=== PATIENT | female | born 1980 | race Caucasian/White ===

== ENCOUNTER 2019-02-15 01:38 | Emergency (ER) | payer OTHER ==
[2019-02-15 02:12] LABS: HCG UR QUAL NEGATIVE
--- NOTE | 2019-02-15 02:33 | XRAY Report ---
Reason: Trauma, fall Procedure Date: 02/15/2019 Accession Number: [id number] / [id number] Procedure: XR - Knee 4 View LT CPT Code: FULL RESULT: EXAM: LEFT KNEE RADIOGRAPHY EXAM DATE: 02/15/2019 02:24 AM. CLINICAL HISTORY: Pain after injury. COMPARISON: None. TECHNIQUE: 5 views. FINDINGS: Bones: No fracture seen. Joints: No dislocation. Joint spaces appear preserved. No joint effusion identified. Soft Tissues: Mild soft tissue swelling. IMPRESSION: 1. No fracture or dislocation seen. RADIA
[2019-02-15] MEDS ORDERED: HYDROcod/ACET 5/325 Prepack 4 PO STA (04:03)
[2019-02-15 04:24] VITALS: BP 151/70
--- NOTE | 2019-02-18 02:48 | ED Physician Documentation ---
PD HPI LOWER EXT INJURY - Stated complaint Stated Complaint: KNEE PX - Chief complaint Chief Complaint: Trauma Ext - History obtained from History obtained from: Patient - History of Present Illness PD HPI LOW EXT INJURY LOCATION: Left, Knee Type of injury: Fall Where injury occurred: Home Timing - onset: Enter time (23:30) Timing - details: Abrupt onset Pain level now: 6 Improved by: Rest, Ice Worsened by: Moving, Palpating Associated symptoms: Swelling Similar symptoms before: Has not had sx before Recently seen: Not recently seen - Additional information Additional information: tripped while trying to gather chickens that got loose in her yard 11:30 PM tonight, landed on left knee and c/o left knee pain Review of Systems Skin: reports: Reviewed and negative Musculoskeletal: reports: Joint pain, Pain with weight bearing Neurologic: denies: Focal weakness, Numbness PD PAST MEDICAL HISTORY - Past Medical History Past Medical History: No - Past Surgical History Past Surgical History: No - Present Medications Home Medications: Ambulatory Orders Medication Instructions Recorded Confirmed Hydrocodone/Acetaminophen 1 - 2 each PO Q6H PRN #14 tablet 02/15/19 [Hydrocodon-Acetaminophen 5-325] - Allergies Allergies/Adverse Reactions: Allergies Allergy/AdvReac Type Severity Reaction Status Date / Time oxycodone AdvReac Nausea Verified 02/15/19 01:45 - Social History Does the pt smoke?: No Smoking Status: Never smoker Does the pt drink ETOH?: Yes Does the pt have substance abuse?: No - Immunizations Immunizations are current?: Yes - POLST Patient has POLST: No PD ED PE NORMAL - Vitals Vital signs reviewed: Yes - General General: Alert and oriented X 3, No acute distress, Well developed/nourished - Derm Derm: Normal color, Warm and dry - Extremities Extremities: No edema - Neuro Neuro: No motor deficit, No sensory deficit PD ED PE EXPANDED - Extremities Extremities: Tenderness, Limited ROM, Left knee. No: Deformity Results - Vitals Vitals: Oxygen O2 Source Room air - Labs Labs: Laboratory Tests 02/15/19 01:58 Ur Specific B[place]ton <=1.005 Urine HCG, Qual NEGATIVE - Rads (name of study) left knee xrays Radiology: Prelim report reviewed, See rad report PD MEDICAL DECISION MAKING - ED course Complexity details: reviewed results, re-evaluated patient, considered differential, d/w patient Departure - Departure Disposition: 01 Home, Self Care Clinical Impression: Knee injury Qualifiers: Encounter type: initial encounter Laterality: left Qualified Code(s): S89.92XA - Unspecified injury of left lower leg, initial encounter Condition: Good Instructions: ED Crutch Walking, ED Immobilizer Knee, ED Sprain Knee Follow-Up: Nicolás Quintero MD [Provider Admit Priv/Credential] - (3-5 days ) Prescriptions: Hydrocodone/Acetaminophen [Hydrocodon-Acetaminophen 5-325] 1 - 2 each PO Q6H PRN #14 tablet PRN Reason: pain Forms: Activity restrictions Discharge Date/Time: 02/15/19 04:59
== END 2019-02-15 04:59 | disposition home or self-care (01) ==
LOC: ED 01:38
DX: S89.92XA Unspecified injury of left lower leg, initial encounter (principal); W01.198A Fall on same level from slipping, tripping and stumbling with subsequent striking against other object, initial encounter; Y93.89 Activity, other specified; Y92.007 Garden or yard of unspecified non-institutional (private) residence as the place of occurrence of the external cause
CPT/HCPCS: 81025; 99282; 99283

== ENCOUNTER 2022-01-05 07:33 | Outpatient (CLI) | payer OTHER ==
--- NOTE | 2022-01-05 08:56 | MRI Report ---
PROCEDURE: Knee LT W/O INDICATIONS: KNEE PAIN TECHNIQUE: Noncontrast sagittal PD fast spin echo and T2 fast spin echo with fat saturation, sagittal 3-D gradie nt sequence with fat saturation; coronal T1 spin echo and PD fast spin echo with fat saturation, and axial PD fast spin echo with fat saturation through the knee. COMPARISON: Plain films of the left knee dated 02/15/2019 FINDINGS: Image quality: Excellent. Menisci: Mild ill-defined T2 signal elevation at the posterior meniscocapsular junction of the handle bar assembler ior horn medial meniscus. Linear oblique high T2 signal intensity traverses the middle and peripheral thirds of the posterior horn medial meniscus, demonstrating oblique tearing. Lateral meniscus is int act. Cruciate ligaments: The anterior and posterior cruciate ligaments appear intact. Medial structures: The medial collateral ligament appears intact. Visualized portions of the pes ans erinus tendons appear normal. No abnormal bursal fluid. Lateral structures: The lateral collateral ligament, long and short heads of the biceps femoris tend on appear intact. The popliteus tendon appears normal Laird. Iliotibial band appears normal. Anterior structures: The quadriceps and patellar tendons appear intact. Lateral patellar subluxation is present. There is mild lateral ventral trochlear prominence. Mild edema within the superolateral aspect of the infrapatellar fat pad. Bones and cartilage: No bone marrow contusions or fractures. Red marrow reconversion within the dist al femur and proximal tibia. Moderate ill-defined T2 signal elevation within the anterior weightbeari ng aspect of the medial tibial plateau, consistent with degenerative marrow edema. Mild ill-defined T 2 signal elevation within the lateral patellar facet inferiorly, consistent with degenerative marrow edema. Moderate articular cartilage loss overlies the lateral patellar facet inferiorly. Joint space: There is a small knee joint effusion and a small King's cyst. Normal appearing synovi al plicae are incidentally noted. IMPRESSION: 1. Medial meniscal tearing. 2. Tricompartmental osteoarthritis with associated articular cartilage loss. 3. Findings consistent with lateral patellofemoral friction syndrome in the appropriate clinical sett ing. There is associated patellofemoral compartment articular cartilage loss and lateral ventral troc hlear prominence. 4. Knee joint effusion and King's cyst. 5. Recommend marrow reconversion, which may indicate sequelae of chronic tobacco inhalation. Reviewed by: Brissa Correa MD on 01/05/2022 8:55 AM PDT Approved by: Brissa Correa MD on 01/05/2022 8:55 AM PDT Station ID: [id number]
== END 2022-01-05 07:34 | disposition home or self-care (01) ==
LOC: DI 07:33
PROVIDERS: ATTEND Physician Assistant
DX: S83.242A Other tear of medial meniscus, current injury, left knee, initial encounter (principal); M17.12 Unilateral primary osteoarthritis, left knee; M94.262 Chondromalacia, left knee; M71.22 Synovial cyst of popliteal space [Baker], left knee

== ENCOUNTER 2022-02-07 08:00 | Outpatient (CLI) | payer OTHER ==
--- NOTE | 2022-02-09 09:28 | XRAY Report ---
PROCEDURE: Knee 4 View LT INDICATIONS: KNEE PAIN TECHNIQUE: 4 views of the left knee(s) were acquired. COMPARISON: Bilateral knee radiographs 04/28/2021. FINDINGS: Bones: No fractures or dislocations. No suspicious bony lesions. Mild medial compartment narrowing . Mild spurring of the medial and patellofemoral compartments. Soft tissues: No definite or large joint effusion. No suspicious soft tissue calcifications. IMPRESSION: 1. No acute osseous abnormality. 2. Mild degenerative changes of the left knee, not substantially changed since before. Reviewed by: Domingo Macdonald MD on 02/09/2022 9:26 AM PDT Approved by: Domingo Macdonald MD on 02/09/2022 9:26 AM PDT Station ID: [id number]
== END 2022-02-07 23:59 | disposition home or self-care (01) ==
LOC: DI.WOS 08:00
PROVIDERS: ATTEND Orthopaedic Surgery
DX: M17.12 Unilateral primary osteoarthritis, left knee (principal)

== ENCOUNTER 2022-03-15 09:18 | Outpatient (CLI) | payer OTHER ==
--- NOTE | 2022-03-15 19:51 | MRI Report ---
PROCEDURE: Knee RT W/O INDICATIONS: RIGHT KNEE PAIN TECHNIQUE: Noncontrast sagittal PD fast spin echo and T2 fast spin echo with fat saturation, sagittal 3-D gradie nt sequence with fat saturation; coronal T1 spin echo and PD fast spin echo with fat saturation, and axial PD fast spin echo with fat saturation through the knee. COMPARISON: None. FINDINGS: Image quality: Excellent. Menisci:. Peripheral displacement of medial meniscus bowing medial collateral ligament is seen. There is signal abnormality involving posterior horn and body of medial meniscus extending to inferior art iculating surface suggestive of oblique tear. Lateral meniscus is intact.. The meniscal root ligamen ts appear intact. Cruciate ligaments: The anterior and posterior cruciate ligaments appear intact. Medial structures: Low to moderate grade medial collateral ligament sprain/partial thickness tear is seen. The posterior oblique ligament, semimembranosus tendon insertions, and oblique popliteal ligam ent, and meniscocapsular junction appear intact. Visualized portions of the pes anserinus tendons ap pear normal. No abnormal bursal fluid. Lateral structures: The lateral collateral ligament, long and short heads of the biceps femoris tend on appear intact. The popliteus tendon appears normal; the popliteofibular ligament appears intact. Iliotibial band appears normal. Anterior structures: The quadriceps and patellar tendons appear intact. Patellar alignment is ruth l. No femoral trochlear dysplasia or ventral trochlear prominence. No edema in the infrapatellar fa t pad. Bones and cartilage: No bone marrow contusions or fractures.. Mild to moderate tricompartmental oste oarthritis and chondromalacia is noted more prominent in medial femoral tibial compartment. Mild-to-m oderate chondromalacia involving lateral facet of patella cartilage near apex is also seen. Joint space: There is small to moderate amount of joint effusion. There is a small King's cyst.. N ormal appearing synovial plicae are incidentally noted. IMPRESSION: 1. Peripheral displacement of medial meniscus bowing medial collateral ligament. Suggestion of obliqu e tear involving body/posterior horn of medial meniscus extending to inferior articulating surface. L ateral meniscus is intact. 2. Cruciate ligaments are intact. Low to moderate grade MCL sprain/partial thickness tear. 3. Mild to moderate tricompartmental osteoarthritis and chondromalacia more prominent in medial femor al tibial compartment and lateral facet of patella cartilage near apex. No fracture or dislocation. 4. Small to moderate joint effusion, no gross loose bodies. Small popliteal cyst. Reviewed by: Prakash Hylton MD on 03/15/2022 7:50 PM PDT Approved by: Prakash Hylton MD on 03/15/2022 7:50 PM PDT Station ID: [id number]
== END 2022-03-15 09:19 | disposition home or self-care (01) ==
LOC: DI 09:18
PROVIDERS: ATTEND Student in an Organized Health Care Education/Training Program
DX: M23.8X1 Other internal derangements of right knee (principal); M17.11 Unilateral primary osteoarthritis, right knee; M22.41 Chondromalacia patellae, right knee; M25.461 Effusion, right knee; M71.21 Synovial cyst of popliteal space [Baker], right knee

== ENCOUNTER 2023-06-06 07:30 | Outpatient (CLI) | payer OTHER ==
--- NOTE | 2023-06-06 11:20 | XRAY Report ---
PROCEDURE: Tib/Fib RT INDICATIONS: RIGHT LOWER LEG PAIN TECHNIQUE: 2 views of the tibia and fibula were acquired. COMPARISON: None. FINDINGS: Bones: No fractures or dislocations. No suspicious bony lesions. Soft tissues: No suspicious soft tissue calcifications or masses. IMPRESSION: No acute bony abnormality. Reviewed by: Jose Manuel Acosta on 06/06/2023 11:18 AM [facility] Approved by: Jose Manuel Acosta on 06/06/2023 11:18 AM [facility] Station ID: [id number]
== END 2023-06-06 07:45 | disposition home or self-care (01) ==
LOC: DI.N 07:30
PROVIDERS: ATTEND Physician Assistant Medical
DX: M79.661 Pain in right lower leg (principal)